=== PATIENT | male | born 2000 | race Caucasian/White ===

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

== ENCOUNTER 2021-03-16 21:46 | Emergency (ER) | payer OTHER ==
[~2021-03-16] VITALS: Ht 167.6 cm; Wt 97.3 kg
[~2021-03-16 21:46] MED LIST changes: -DOXY100C37 PO; +DOXY1CAP62 PO
[2021-03-16 21:47] VITALS: BP 132/67
[2021-03-16] MEDS ORDERED: AZIT500T5 (22:14)
[2021-03-16] MEDS ORDERED: BENZ-18 (22:14)
[2021-03-16] MEDS ORDERED: PRED20TA (22:14)
[2021-03-18] MEDS ORDERED: IBUP200C25 PO (03:44)
== END 2021-03-17 03:21 | disposition left against medical advice (07) ==
LOC: M ED 21:46
DX: Z53.21 Procedure and treatment not carried out due to patient leaving prior to being seen by health care provider (principal)

== ENCOUNTER 2021-03-17 21:42 | Emergency (ER) | payer OTHER ==
[~2021-03-17] VITALS: Ht 167.6 cm; Wt 97.3 kg
[~2021-03-17 21:42] MED LIST changes: +AZIT500T5; +BENZ-18; +PRED20TA
[2021-03-18] MEDS ORDERED: KETOROLAC 30 MG/ML 1ML VIAL IV ONE (00:40)
[2021-03-18 00:59] LABS: BASO # 0.1 10^3/uL (0.0-0.2); BASO % 0.6 % (0.0-1.0); EOS # 0.1 10^3/uL (0.0-0.5); EOS % 0.9 % (0.0-3.0); HEMATOCRIT 44.1 % (42.0-52.0); HEMOGLOBIN 15.1 g/dl (13.5-17.5); LYMPH % 34.6 % (24.0-44.0); MEAN CORPUSCULAR HEMOGLOBIN 29.1 pg (27.0-33.0); MEAN CORPUSCULAR HGB CONC 34.2 g/dl (32.0-36.5); MONO # 0.8 10^3/uL (0.0-0.8); MONO % 8.9 % (2.0-8.0); NEUTROPHILS # 4.8 10^3/uL (1.5-8.5); NEUTROPHILS % 54.8 % (36.0-66.0); PLATELET COUNT, AUTOMATED 375 10^3/uL (150-450); RED BLOOD COUNT 5.19 10^6/uL (4.30-6.10); WHITE BLOOD COUNT 8.7 10^3/uL (4.0-10.0)
[2021-03-18] MEDS ORDERED: ISOVUE-370 76% 100ML VIAL As Ordered ONE (01:25)
[2021-03-18 01:28] LABS: ALBUMIN 4.1 GM/DL (3.2-5.2); BILIRUBIN,DIRECT 0.1 MG/DL (0.0-0.2); BILIRUBIN,TOTAL 0.5 MG/DL (0.2-1.0); TOTAL PROTEIN 7.7 GM/DL (6.4-8.2)
--- NOTE | 2021-03-18 03:18 | REPVR ---
PROCEDURE INFORMATION: Exam: CT Abdomen And Pelvis With Contrast Exam date and time: 03/18/2021 1:39 AM Age: 20 years old Clinical indication: Abdominal pain; Localized; Left lower quadrant (llq); Additional info: Llq pain TECHNIQUE: Imaging protocol: Computed tomography of the abdomen and pelvis with contrast. Radiation optimization: All CT scans at this facility use at least one of these dose optimization techniques: automated exposure control; mA and/or kV adjustment per patient size (includes targeted exams where dose is matched to clinical indication); or iterative reconstruction. Contrast material: ISOVUE 370; Contrast volume: 100 ml; Contrast route: INTRAVENOUS (IV); COMPARISON: RENAL US 05/29/2018 8:04 AM FINDINGS: Liver: The liver attenuation is 73 Hounsfield units and the spleen is 117 Hounsfield units. Gallbladder and bile ducts: Normal. No calcified stones. No ductal dilation. Pancreas: Normal. No ductal dilation. Spleen: Normal. No splenomegaly. Adrenal glands: Normal. No mass. Kidneys and ureters: Normal. No hydronephrosis. Stomach and bowel: Unremarkable. No obstruction. No mucosal thickening. Appendix: A normal appendix is seen. Intraperitoneal space: There is localized pericolonic edema extending anterolaterally from the proximal sigmoid with a central finger or core of relatively normal fat consistent with appendagitis. Vasculature: Unremarkable. No abdominal aortic aneurysm. Lymph nodes: Unremarkable. No enlarged lymph nodes. Urinary bladder: Unremarkable as visualized. Reproductive: Unremarkable as visualized. Bones/joints: Unremarkable. No acute fracture. Soft tissues: Unremarkable. IMPRESSION: 1. Epiploic appendagitis extending anterolaterally from the proximal sigmoid colon. 2. Fatty infiltration of the liver. Electronically signed by: Anant Echevarria On 03/18/2021 03:17:47 AM
[2021-03-18] MEDS ORDERED: IBUP200C25 PO (03:44)
[2021-03-18 03:53] VITALS: BP 128/69
== END 2021-03-18 03:55 | disposition home or self-care (01) ==
LOC: M ED 21:42
DX: Q43.8 Other specified congenital malformations of intestine (principal); F33.9 Major depressive disorder, recurrent, unspecified; G47.00 Insomnia, unspecified
CPT/HCPCS: 74177; 80047; 80076; 81001; 83690; 85025; 96374; 99284; J1885; Q9967

== ENCOUNTER 2021-08-07 09:52 | Emergency (ER) | payer OTHER ==
[~2021-08-07] VITALS: Ht 167.6 cm; Wt 99.3 kg
[~2021-08-07 09:52] MED LIST changes: +DOXY-443 PO; -DOXY1CAP62 PO; +IBUP200C25 PO
[2021-08-07] MEDS ORDERED: METOCLOPRAMIDE INJ 10MG/2ML VIAL (J2765 PER 1) IV ONE (12:20)
[2021-08-07] MEDS ORDERED: NS 1,000 ML IV SCH (12:20)
[2021-08-07 12:53] LABS: BASO % 0.6 % (0.0-1.0); EOS # 0.1 10^3/uL (0.0-0.5); EOS % 0.7 % (0.0-3.0); HEMATOCRIT 45.2 % (42.0-52.0); HEMOGLOBIN 15.4 g/dl (13.5-17.5); LYMPH # 2.1 10^3/uL (1.5-5.0); LYMPH % 30.1 % (24.0-44.0); MEAN CORPUSCULAR HEMOGLOBIN 29.1 pg (27.0-33.0); MEAN CORPUSCULAR HGB CONC 34.1 g/dl (32.0-36.5); MEAN CORPUSCULAR VOLUME 85.3 fl (80.0-96.0); MONO # 0.5 10^3/uL (0.0-0.8); MONO % 7.4 % (2.0-8.0); NEUTROPHILS # 4.3 10^3/uL (1.5-8.5); NEUTROPHILS % 60.9 % (36.0-66.0); PLATELET COUNT, AUTOMATED 408 10^3/uL (150-450)
[2021-08-07 13:34] LABS: ALT/SGPT 69 U/L (12-78); BILIRUBIN,DIRECT 0.1 MG/DL (0.0-0.2); BILIRUBIN,TOTAL 0.3 MG/DL (0.2-1.0); BLOOD UREA NITROGEN 11 MG/DL (7-18); CALCIUM LEVEL 9.5 MG/DL (8.5-10.1); CARBON DIOXIDE LEVEL 25 MEQ/L (21-32); CHLORIDE LEVEL 107 MEQ/L (98-107); CREATININE FOR GFR 0.71 MG/DL (0.70-1.30); GLUCOSE, FASTING 101 MG/DL (70-100); LIPASE 205 U/L (73-393); POTASSIUM SERUM 4.4 MEQ/L (3.5-5.1); SODIUM LEVEL 140 MEQ/L (136-145); TOTAL PROTEIN 7.3 GM/DL (6.4-8.2)
[2021-08-07] MEDS ORDERED: ISOVUE-370 76% 100ML VIAL As Ordered ONE (13:54)
[2021-08-07] MEDS ORDERED: ONDA4TAB6 PO (15:25)
[2021-08-07 15:35] VITALS: BP 123/64
== END 2021-08-07 15:37 | disposition home or self-care (01) ==
LOC: M ED 09:52
DX: R10.9 Unspecified abdominal pain (principal); R11.0 Nausea; R19.7 Diarrhea, unspecified
CPT/HCPCS: 74177; 80048; 80076; 83690; 85025; 93041; 96361; 96374; 99284; J2765; Q9967

== ENCOUNTER 2022-03-03 22:27 | Inpatient (IN) | payer OTHER ==
[~2022-03-03] VITALS: Ht 170.2 cm; Wt 77.3 kg
[~2022-03-03 22:27] MED LIST changes: +ONDA4TAB6 PO
[2022-03-03 23:23] LABS: HEMATOCRIT 44.1 % (42.0-52.0); HEMOGLOBIN 14.8 g/dl (13.5-17.5); MEAN CORPUSCULAR HEMOGLOBIN 29.4 pg (27.0-33.0); MEAN CORPUSCULAR HGB CONC 33.6 g/dl (32.0-36.5); MEAN CORPUSCULAR VOLUME 87.5 fl (80.0-96.0); PLATELET COUNT, AUTOMATED 410 10^3/uL (150-450); RED BLOOD COUNT 5.04 10^6/uL (4.30-6.10); WHITE BLOOD COUNT 9.3 10^3/uL (4.0-10.0)
[2022-03-03 23:54] LABS: RSV AMPLIFICATION NEGATIVE (NEGATIVE)
[2022-03-04 00:11] LABS: ACETAMINOPHEN LEVEL < 2.0 UG/ML (10.0-30.0); ALBUMIN 3.9 GM/DL (3.2-5.2); ALT/SGPT 38 U/L (12-78); BILIRUBIN,DIRECT < 0.1 MG/DL (0.0-0.2); BILIRUBIN,TOTAL 0.3 MG/DL (0.2-1.0); BLOOD UREA NITROGEN 10 MG/DL (7-18); CALCIUM LEVEL 9.1 MG/DL (8.5-10.1); CARBON DIOXIDE LEVEL 26 MEQ/L (21-32); CHLORIDE LEVEL 107 MEQ/L (98-107); ETHYL ALCOHOL (ETHANOL) 0.003 % (0.000-0.010); GLUCOSE, FASTING 101 MG/DL (70-100); SALICYLATE LEVEL < 1.7 MG/DL (5.0-30.0); SODIUM LEVEL 140 MEQ/L (136-145)
[2022-03-04 00:30] LABS: AMPHETAMINES LEVEL URINE NEGATIVE (NEGATIVE); BARBITURATES URINE NEGATIVE (NEGATIVE); BENZODIAZEPINES URINE NEGATIVE (NEGATIVE); CANNABINOIDS URINE POSITIVE (NEGATIVE); COCAINE METABOLITE URINE NEGATIVE (NEGATIVE); METHADONE URINE NEGATIVE (NEGATIVE); OPIATES URINE NEGATIVE (NEGATIVE); PHENCYCLIDINE URINE NEGATIVE (NEGATIVE)
[2022-03-04] MEDS ORDERED: HOME MED LIST COMPLETE! XX SCH (06:00)
[2022-03-05] MEDS ORDERED: IBUPROFEN 400MG TAB PO PRN (13:25)
[2022-03-05] MEDS ORDERED: MOM 30ML SUSPENSION UDC PO PRN (13:25)
[2022-03-05] MEDS ORDERED: MAALOX 30 ML SUSP *UDC PO PRN (13:25)
[2022-03-05] MEDS ORDERED: diphenhydrAMINE 25MG CAP PO PRN (13:25)
[2022-03-06 06:51] VITALS: BP 115/74
[2022-03-06] MEDS ORDERED: OLANZapine ORAL DISINTEGRATING TAB 5MG PO PRN (09:55)
[2022-03-06] MEDS: NICOTINE 21MG/24HR 1 EA TRANSDERMAL TD SCH (10:13)
[2022-03-06 18:19] VITALS: BP 132/70
[2022-03-06] MEDS: traZODone 50 MG TAB PO PRN (20:04)
[2022-03-06] MEDS: lamoTRIgine 25MG TAB PO SCH (20:04)
[2022-03-07 06:28] VITALS: BP 115/64
[2022-03-07] MEDS: NICOTINE 21MG/24HR 1 EA TRANSDERMAL TD SCH (09:00)
[2022-03-07 18:43] VITALS: BP 125/81
[2022-03-07] MEDS: lamoTRIgine 25MG TAB PO SCH (20:05)
[2022-03-07] MEDS: traZODone 50 MG TAB PO PRN (20:05)
[2022-03-08 07:18] VITALS: BP 115/70
[2022-03-08] MEDS ORDERED: LAMI25TA PO (08:22)
[2022-03-08] MEDS ORDERED: TRAZ-252 PO (08:22)
[2022-03-08] MEDS ORDERED: NICO21PAT TD (08:22)
[2022-03-08] MEDS: NICOTINE 21MG/24HR 1 EA TRANSDERMAL TD SCH (09:00)
== END 2022-03-08 11:31 | disposition home or self-care (01) | DRG 753 ==
LOC: M ED 22:27 → M ED INP 03-05 13:24 → M PSY 03-05 14:39
PROVIDERS: ADMIT Student in an Organized Health Care Education/Training Program; ATTEND Psychiatry & Neurology Psychiatry
DX: F31.9 Bipolar disorder, unspecified (principal); F12.10 Cannabis abuse, uncomplicated; F10.10 Alcohol abuse, uncomplicated; F41.9 Anxiety disorder, unspecified; Z91.51 Personal history of suicidal behavior; Z81.8 Family history of other mental and behavioral disorders; F17.290 Nicotine dependence, other tobacco product, uncomplicated; Z62.810 Personal history of physical and sexual abuse in childhood; R45.851 Suicidal ideations

== ENCOUNTER 2022-06-06 11:05 | Emergency (ER) | payer OTHER ==
[~2022-06-06] VITALS: Ht 170.2 cm; Wt 74.1 kg
[~2022-06-06 11:05] MED LIST changes: +LAMI25TA PO; +NICO21PAT TD; +TRAZ-252 PO
[2022-06-06] MEDS ORDERED: IBUP200C33 PO (11:50)
[2022-06-06 15:04] VITALS: BP 119/67
== END 2022-06-06 15:05 | disposition home or self-care (01) ==
LOC: M ED 11:05
DX: S06.0X0A Concussion without loss of consciousness, initial encounter (principal); M54.2 Cervicalgia; W22.8XXA Striking against or struck by other objects, initial encounter; Y99.0 Civilian activity done for income or pay; Z79.899 Other long term (current) drug therapy

== ENCOUNTER 2023-11-07 09:02 | Emergency (ER) | payer OTHER ==
[~2023-11-07] VITALS: Ht 167.6 cm; Wt 73.3 kg
[~2023-11-07 09:02] MED LIST changes: +DOXY-323 PO; -DOXY-443 PO; +IBUP200C33 PO
[2023-11-07] MEDS: PROPARACAINE 0.5% OPHTH SOL 15ML OD ONE (09:34)
[2023-11-07] MEDS: FLUORESCEIN OPHTH 1MG STRIP OD ONE (09:35)
[2023-11-07] MEDS ORDERED: POLY2.5S OP (09:52)
[2023-11-07 10:00] VITALS: BP 115/61; TEMP 98.7; O2SAT 98
== END 2023-11-07 10:02 | disposition home or self-care (01) ==
LOC: M ED 09:02
DX: H10.31 Unspecified acute conjunctivitis, right eye (principal); Z91.09 Other allergy status, other than to drugs and biological substances; Z79.1 Long term (current) use of non-steroidal anti-inflammatories (NSAID); Z79.2 Long term (current) use of antibiotics